=== PATIENT | female | born 1935 | race Caucasian/White ===

== ENCOUNTER → 2018-10-14 | Outpatient (CLI) | payer MEDICARE | END | disposition home or self-care (01) | LOC: OIH 11:25 | PROVIDERS: ATTEND Internal Medicine | DX: J44.9 Chronic obstructive pulmonary disease, unspecified (principal); G31.9 Degenerative disease of nervous system, unspecified; I11.9 Hypertensive heart disease without heart failure | CPT/HCPCS: 70450; 71046 ==